=== PATIENT | female | born 1965 | race Caucasian/White ===

== ENCOUNTER 2024-08-11 12:16 | Inpatient (IN) | payer OTHER, SELFPAY ==
[2024-08-11] VITALS (11 sets, daily range): BP systolic 145–199; BP diastolic 88–113; BMI 29.3
--- NOTE | 2024-08-11 08:55 | ED.GENMED ---
History of Present Illness
General
Chief Complaint: Dizziness
Source: patient
Exam Limitations: none
Time Seen by Provider: 08/11/24 08:44
History of Present Illness
History of Present Illness:
59-year-old female presents with onset of lightheadedness this morning. She got up for work and started feeling lightheaded. This was preceded by 2 nights ago having copious amounts of dark coffee-ground appearing emesis. There is no further
vomiting yesterday. She denies any obvious black stools. She has approximately 3 alcoholic drinks a day and uses Aleve almost every day. She does not use caffeine on a regular basis. She currently denies abdominal pain vomiting nausea diarrhea
chest pain or shortness of breath. She has a history of hypertension otherwise. No other complaints at this time
Past History
Past History
ED Past Medical History: GERD and Hypercholesterolemia
ED Past Surgical History: None
Social History
Living: with family
Employment: Employed
Phy Exam
Physical Exam
Physical Exam:
General: Well-appearing female no acute respiratory distress
HEENT: Normocephalic atraumatic heart: Regular rate and rhythm
Lungs: Clear no wheeze
Abdomen is soft nontender nondistended
Extremities: No cyanosis or edema
Skin: Warm no rash
Course
Orders/Labs/Results
Orders:
Orders
08/11/24 08:30
EKG [Electrocardiogram (*1)] Urgent
Reason for Study: Vertigo / Dizzy
EKG- Treatment ONCE
08/11/24 08:55
Cardiac Monitoring- Treatment ONCE
Pantoprazole [Protonix IV] 80 mg IV NOW STA
08/11/24 09:07
Complete Blood Count/With Diff Urgent
Comprehensive Metabolic Panel Urgent
Lipase Urgent
08/11/24 09:30
0.9% Sodium Chloride 1000 ml [Nss] 1,000 ml IV BOLUS
Abnormal Lab Results
08/11/24
09:07
MCHC 32.6 L g/dL
(33.0-37.0)
BUN 20 H mg/dl
(7-17)
Glucose 158 H mg/dl
(70-99)
ALT 36 H U/L
(0-35)
08/11/24 09:07
08/11/24 09:07
Vital Signs
Initial and Last Documented VS:
Initial Vital Signs
Temp Pulse Resp BP Pulse Ox
98.4 F 76 16 174/108 99
08/11/24 08:25 08/11/24 08:25 08/11/24 08:25 08/11/24 08:25 08/11/24 08:25
Last Documented Vital Signs
Temp Pulse Resp BP Pulse Ox
98.4 F 66 13 174/108 96
08/11/24 08:25 08/11/24 10:00 08/11/24 10:00 08/11/24 08:25 08/11/24 10:00
MDM/Problems Addressed
Differential Diagnosis Includes:
Patient is lightheaded but also had dark coffee-ground looking like emesis 2 nights ago. EKG shows sinus rhythm without arrhythmia will hookup to manager cardiac to evaluate for arrhythmias. Also check for anemia and electrolyte imbalance. No
further vomiting or abdominal pain. Considered imaging however not indicated at this time.
*Critical Care Note
Total Time (30-74mins, 75-104mins- exclusive of procedures): Not Applicable
Update Note
Update Note:
With female plasterer rough in the room. Rectal exam was performed which demonstrated black-colored heme positive stool. Protonix ordered. Given patient's fatigue and lightheadedness associated with likely upper GI bleeding, discussed with emergency
room attending and will admit to hospital for further evaluation
ED Attending Note
-
Portions of this chart may have been created with voice recognition software.� Occasional wrong word or��sound alike� substitutions may have occurred due to the inherent limitations of voice recognition software.
Discharge Plan
Departure
Patient Disposition: Admit
Date of Disposition: 08/11/24
Time of Disposition: 10:36
Presentation/result/management discussed w/ accepting MD/DO: Hospitalist
Discharge Problem:
Acute GI bleeding
Prescriptions:
No Action
venlafaxine [Effexor XR] 150 mg Capsule,Extended Release 24hr
150 mg PO DAILY
acetaminophen [Tylenol] 325 mg Tablet
650 mg PO Q4HPRN PRN (Reason: mild pain)
esomeprazole magnesium [Nexium] 40 mg Capsule,Delayed Release(Dr/Ec)
40 mg PO HS
olmesartan [Benicar] 40 mg Tablet
40 mg PO DAILY
rosuvastatin [Crestor] 10 mg Tablet
10 mg PO QPM
Super Greens Gummies
2 gummy PO DAILY
Referrals:
Aleida Fenton PA-C [Family Provider] -
Interventions
Interventions:
*Risk Screen - Suicide Last Done: 08/11/24 08:25
*General Assessment Last Done: 08/11/24 08:25
*Neglect/Abuse Screening Last Done: 08/11/24 08:25
ED- Fall Risk Assessment Last Done: 08/11/24 09:08
ED- Neurological Assessment Last Done: 08/11/24 09:08
ED- Cardiac Assessment Last Done: 08/11/24 09:08
Discharge Date and Time
Print Language: GUATEMALAN
[2024-08-11 09:24] LABS: % Basophils 0.4 % (0-2); % Eosinophils 1.2 % (0-6); % Immature Granulocytes 0.3 % (0-0.5); % Lymphocytes 26.8 % (20.5-51.1); % Monocytes 8.7 % (1.7-9.3); % Neutrophils 62.6 % (42.2-75.2); Absolute Eosinophils 0.1 10^3/uL (0-0.7); Absolute Lymphocytes 1.8 10^3/uL (1.2-3.4); Absolute Monocytes 0.6 10^3/uL (0.1-0.6); Absolute Neutrophils 4.2 10^3/uL (1.4-6.5); Hematocrit 39.6 % (37.0-47.0); Hemoglobin 12.9 g/dL (12.0-16.0); Mean Corp Hgb Conc. 32.6 g/dL (33.0-37.0); Mean Corpuscular Volume 86.1 fL (81.0-99.0); Mean Platelet Volume 8.7 fL (7.4-10.4); Nucleated Red Blood Cells % 0 %; Platelet Count 196 10^3/uL (130-400); White Blood Cell Count 6.8 10^3/uL (4.8-10.8)
[2024-08-11 09:38] LABS: ALT (SGPT) 36 U/L (0-35); AST (SGOT) 35 U/L (14-36); Albumin 4.7 g/dl (3.5-5.0); Alkaline Phosphatase 60 U/L (38-126); Blood Urea Nitrogen 20 mg/dl (7-17); Calcium 9.6 mg/dl (8.4-10.2); Carbon Dioxide 29 mmol/L (22-30); Chloride 99 mmol/L (98-107); Glucose 158 mg/dl (70-99); Lipase 99 U/L (23-300); Potassium 3.9 mmol/L (3.5-5.1); Sodium 139 mmol/L (135-145); Total Bilirubin 0.7 mg/dl (0.2-1.3); Total Protein 7.9 g/dl (6.3-8.2); eGFR > 60.00
[2024-08-11] MEDS: PROTONIX IV 80 MG IV (09:49)
[2024-08-11] MEDS: NSS 1000 IV ×2 (09:50→15:40)
--- NOTE | 2024-08-11 11:43 | HPS.HSE ---
Family Physician
-
Family Physician: Aleida Fenton PA-C
Chief Complaint
-
Lightheadedness
History of Present Illness
Patient is a 59 years old female with history of hypertension who developed acute onset of nausea vomiting with reported coffee-ground content about 24 hours prior to presentation. Patient denied any abdominal pain, diarrhea, fever. Episode was
self-limited and patient had no symptoms for about 12 to 18 hours prior to presentation. In the morning of the day of admission patient reported sudden onset of lightheadedness. She denied syncope, chest pain. Because of the persistent symptoms
she presented to the emergency room for evaluation.
Patient admits to alcohol consumption daily about 3 bourbon drinks a day. She denies any alcohol-related problems or alcohol withdrawal in the past.
In the emergency room patient is hemodynamically stable, actually hypertensive. Further evaluation revealed hemoglobin of 12.8 and normal BUN. Physical examination with heme positive stool.
Medical History
Past Medical History
Past Medical History: Reports HTN
Past Surgical History: Reports None
Social History
Tobacco: Non-smoker
Alcohol: Daily
Drug: None
Personal:
Living: With Family
Employment: Employed
Family History
Family History: Not pertinent
Allergies / Home Medications
Allergies reflects when Allergies were last updated in [facility].
Home Medications with original date entered in [facility]
Allergy/Medication List:
Allergies
Allergy/AdvReac Type Severity Reaction Status Date / Time
No Known Allergies Allergy Verified 08/11/24 08:25
Home Medications
Super Greens Gummies 2 gummy PO DAILY Supplement 08/11/24
acetaminophen 325 mg tablet (Tylenol) 650 mg PO Q4HPRN PRN mild pain 08/11/24
esomeprazole magnesium 40 mg capsule,delayed release (Nexium) 40 mg PO HS Gastrointestinal Issue 08/11/24
olmesartan 40 mg tablet (Benicar) 40 mg PO DAILY Blood Pressure 08/11/24
rosuvastatin 10 mg tablet (Crestor) 10 mg PO QPM High Cholesterol 08/11/24
venlafaxine 150 mg capsule,extended release 24 hr (Effexor XR) 150 mg PO DAILY depression/anxiety 08/11/24
Review of Systems
-
A 12 point ROS was completed and negative except as noted: Yes
Cardiac: Reports No Symptoms
Abdomen/GI: Reports See HPI
Physical Exam
Vital Signs
Vital Signs
Temp Pulse Resp BP Pulse Ox
98.4 F 73 21 161/96 97
08/11/24 08:25 08/11/24 10:09 08/11/24 10:09 08/11/24 10:09 08/11/24 10:09
Physical Exam
General: Well Developed, Well Nourished and No Apparent Distress
HEENT: NormoCephalic, Moist mucous membranes and Atraumatic
Respiratory: Clear
Cardiac: S1/S2 and Regular Rhythm; No Murmur or Rub
GI: Soft, Non Tender, Non Distended and Normal Bowel Sounds; No Organomegaly
Rectal: Deferred by Provider
Musculoskeletal: No Clubbing, No Cyanosis and No Edema
Skin: No Rash
Neuro: Nonfocal/grossly intact
Laboratory Results
-
08/11/24 09:07
08/11/24 09:07
Laboratory Results
Total Bilirubin 0.7 mg/dl (0.2-1.3) 08/11/24 09:07
AST 35 U/L (14-36) 08/11/24 09:07
ALT 36 U/L (0-35) H 08/11/24 09:07
Alkaline Phosphatase 60 U/L (38-126) 08/11/24 09:07
Lipase 99 U/L (23-300) 08/11/24 09:07
Impression/Plan
-
IMPRESSION:
Presentation with self-limited episode of coffee-ground emesis
Lightheadedness
Accelerated hypertension
Daily alcohol consumption
PLAN:
Coffee-ground emesis
Differential gastritis,/PUD/Yesenia-Petty tear.
Hemodynamically stable
Hemoglobin 12.8 baseline normal BUN
Continue IV PPI.
Clear liquid diet
GI evaluation with likely EGD
Follow hemoglobin
Lightheadedness pain
No neurologic findings on exam
Hemodynamically stable
Noted accelerated hypertension
ECG normal sinus rhythm
Monitor on telemetry
Daily alcohol consumption
According to interview low risk for alcohol withdrawal
Will continue alcohol withdrawal protocol/ MSAS
Thiamine
Essential hypertension
Continue on losartan monitoring BP trend closely.
--- NOTE | 2024-08-11 15:45 | CON.GI ---
Addendum entered and electronically signed by Doug Bean DO 08/11/24 19:46:
I saw and examined the patient.
The ONCOLOGY REP SPECIALIST's note was reviewed and I agree with the note.
Comment: This is a 59 y.o female with past medical history of HTN with acute nausea/vomiting and self-limited episode of coffee ground emesis. Heme (+) stool but without any melena or maroon bowel movements. Does note significant EtOH use but no
history of cirrhosis or signs of synthetic dysfunction. Would benefit from an EGD given her previous dark stools prior to admission and concern for coffee ground emesis secondary to non-variceal UGIB.
Recommendations:
- Okay for CLD, keep NPO at MN
- IV PPI 40 mg BiD
- Plan for EGD tomorrow, 08/12/2024, for further evaluation
- NSAID avoidance and EtOH cessation
- See rest of care as outline below
Discussed with primary internal medicine team. GI will continue to follow.
Original Note:
Consultation
-
Date/Time Consultation Requested: 08/11/24 1523
Date/Time Consultation Performed: 08/11/24 1530
Requesting Provider: Dr. Jules
Performing Provider: Dr. Bean/JASON Galindo
Reason for Consultation: hematemesis
Medical History
Chief Complaint / HPI
Chief Complaint: lightheadedness
History of Present Illness:
59-year-old female with past medical history of hypertension, alcohol use disorder GERD, osteoarthritis presents to the emergency room with lightheadedness after having large episode of coffee-ground emesis Sunday night. Asked to evaluate for the
same. The patient has 25-year history of GERD using Nexium daily. She also has a history of osteoarthritis using ibuprofen 200 mg every other day for multiple years. The patient also drinks 1.5 L of bourbon a week. Her drinks are usually 3
drinks daily. She states that Sunday evening she felt as if she was going to vomit. She got up and immediately vomited a very large amount of hematemesis. The following day she had dark stools. She went to try to drive to work and she felt
'out of it'. She felt spacey and because of the sensation she had her take her to the emergency room. She was found to have OB positive stool. She denies any fevers, chills, hematochezia, dysphagia or dyne aphasia. No early satiety or
unintentional weight loss. She does not smoke. She has never had an upper endoscopy before. Her last colonoscopy was in 2020 at [facility]. She states that she was told this was normal and did not need another one until the age of
64. She denies any family history of gastrointestinal malignancy or IBD.
Past Medical History
Past Medical History: GERD, HTN and Other (Depression, osteoarthritis)
Social History
Tobacco: Non-Smoker
Alcohol: Daily (3 drinks daily (1.5 L of bourbon a week))
Drug: None
Personal:
Living: With Family
Employment: Employed
Family History
Family History: Other (No family history of gastrointestinal malignancy or IBD)
Allergies / Home Medications
Allergy/AdvReac Type Severity Reaction Status Date / Time
No Known Allergies Allergy Verified 08/11/24 08:25
�Medication �Instructions �Recorded
Super Greens Gummies 2 gummy PO DAILY Supplement 08/11/24
acetaminophen 325 mg tablet 650 mg PO Q4HPRN PRN mild pain 08/11/24
(Tylenol)
esomeprazole magnesium 40 mg 40 mg PO HS Gastrointestinal Issue 08/11/24
capsule,delayed release (Nexium)
olmesartan 40 mg tablet (Benicar) 40 mg PO DAILY Blood Pressure 08/11/24
rosuvastatin 10 mg tablet (Crestor) 10 mg PO QPM High Cholesterol 08/11/24
venlafaxine 150 mg 150 mg PO DAILY depression/anxiety 08/11/24
capsule,extended release 24 hr
(Effexor XR)
Review of Systems
-
All other systems: A 12 pt ROS was Negative except as stated above in HPI
Vital Signs
Temp Pulse Resp BP Pulse Ox
98.4 F 73 18 164/92 97
08/11/24 08:25 08/11/24 15:00 08/11/24 15:06 08/11/24 15:00 08/11/24 14:30
Physical Exam
Exam
General: No Apparent Distress
HEENT: Anicteric
Respiratory: Clear
Cardiac: Regular Rhythm
GI: Soft, Non Tender, Non Distended and Normal Bowel Sounds
Musculoskeletal: No Edema
Skin: Warm and Dry
Neuro: AO x 3
Psych: Calm and Other (No asterixis)
Results
WBC 6.8 10^3/uL (4.8-10.8) 08/11/24 09:07
Hgb 12.9 g/dL (12.0-16.0) 08/11/24 09:07
Hct 39.6 % (37.0-47.0) 08/11/24 09:07
MCV 86.1 fL (81.0-99.0) 08/11/24 09:07
Plt Count 196 10^3/uL (130-400) 08/11/24 09:07
Absolute Neuts (auto) 4.2 10^3/uL (1.4-6.5) 08/11/24 09:07
Sodium 139 mmol/L (135-145) 08/11/24 09:07
Potassium 3.9 mmol/L (3.5-5.1) 08/11/24 09:07
Chloride 99 mmol/L (98-107) 08/11/24 09:07
Carbon Dioxide 29 mmol/L (22-30) 08/11/24 09:07
BUN 20 mg/dl (7-17) H 08/11/24 09:07
Creatinine 0.9 mg/dL (0.6-1.0) 08/11/24 09:07
Calcium 9.6 mg/dl (8.4-10.2) 08/11/24 09:07
Total Bilirubin 0.7 mg/dl (0.2-1.3) 08/11/24 09:07
AST 35 U/L (14-36) 08/11/24 09:07
ALT 36 U/L (0-35) H 08/11/24 09:07
Alkaline Phosphatase 60 U/L (38-126) 08/11/24 09:07
Lipase 99 U/L (23-300) 08/11/24 09:07
Diagnostic Image Results:
None
Prior GI Procedures:
EGD: Never
Colonoscopy: 2020 ([facility]) per patient's she states was negative. States she does not need another until the age of 64. Records unavailable to us
Assessment / Plan
-
59-year-old female with past medical history of hypertension, alcohol use disorder GERD, osteoarthritis presents to the emergency room with lightheadedness after having large episode of coffee-ground emesis Sunday night. Asked to evaluate for the
same. Patient presents with OB positive stool. Lightheadedness this morning. Significant alcohol use drinking up to 1.5 L of bourbon a week. Ibuprofen use 200 mg every other day. Significant GERD history using Nexium daily for 25 years. Vital
signs stable. WBC 6.8, hemoglobin 12.9, hematocrit 3 9.6, platelets 196, sodium 139, potassium 3.9, BUN 20, creatinine 0.9, glucose 158, total bilirubin 0.7, AST 35, ALT 36, alk phos 60, alcohol nondetected.
Impression:
OB positive stool
Hematemesis
Lightheadedness
Alcohol use (1.5 L weekly)
Plan:
-Continue pantoprazole
-EGD planned for tomorrow
-Trend hemoglobin
-No stigmata of cirrhosis, will hold on octreotide.
-Advised on alcohol cessation
-Alcohol withdrawal prophylaxis
-Avoid NSAIDs
-Further recommendations to be forthcoming
-
-
Thank you for consultation and allowing me to participate in the patient's care. Please call the regional planner GI physician during the after hours with any questions or concerns.
[2024-08-11 15:53] LABS: Alcohol None Detected
[2024-08-11 15:58] LABS: B-Hydroxybutyrate 0.44 mmol/L (0.02-0.27)
[2024-08-11] MEDS: FOLVITE 1 MG PO (17:56)
[2024-08-11] MEDS: CRESTOR 10 MG PO (17:56)
[2024-08-11] MEDS: THIAMINE INJECTION 200 MG IV (19:14)
[2024-08-11] MEDS: PROTONIX IV 40 MG IV (19:14)
[2024-08-11] MEDS: NSS (PRESERVATIVE FREE) 10 ML IV (19:14)
[2024-08-11] MEDS: BENICAR 40 MG PO (19:18)
[2024-08-12] VITALS (7 sets, daily range): BP systolic 12–180; BP diastolic 70–106
[2024-08-12] MEDS: NSS 1000 IV ×2 (01:08→10:28)
[2024-08-12 01:35] LABS: Hemoglobin 11.5 g/dL (12.0-16.0)
[2024-08-12] MEDS: FOLVITE 1 MG PO (08:18)
[2024-08-12] MEDS: EFFEXOR XR 150 MG PO (08:18)
[2024-08-12] MEDS: BENICAR 40 MG PO (08:18)
[2024-08-12] MEDS: NSS (PRESERVATIVE FREE) 10 ML IV (08:19)
[2024-08-12] MEDS: PROTONIX IV 40 MG IV (08:19)
[2024-08-12] MEDS: THIAMINE INJECTION 200 MG IV (08:19)
[2024-08-12 08:25] LABS: % Basophils 0.6 % (0-2); % Eosinophils 1.8 % (0-6); % Immature Granulocytes 0.4 % (0-0.5); % Lymphocytes 28.7 % (20.5-51.1); % Monocytes 8.9 % (1.7-9.3); % Neutrophils 59.6 % (42.2-75.2); Absolute Eosinophils 0.1 10^3/uL (0-0.7); Absolute Lymphocytes 1.9 10^3/uL (1.2-3.4); Absolute Monocytes 0.6 10^3/uL (0.1-0.6); Hematocrit 35.2 % (37.0-47.0); Hemoglobin 11.7 g/dL (12.0-16.0); Mean Corp Hgb Conc. 33.2 g/dL (33.0-37.0); Mean Corpuscular Hgb 28.1 pg (27.0-31.0); Mean Corpuscular Volume 84.4 fL (81.0-99.0); Nucleated Red Blood Cells % 0 %; Platelet Count 190 10^3/uL (130-400); Red Blood Cell Count 4.17 10^6/uL (4.20-5.40); Red Cell Dist. Width 13.8 % (11.5-14.5); White Blood Cell Count 6.7 10^3/uL (4.8-10.8)
[2024-08-12 08:49] LABS: Blood Urea Nitrogen 13 mg/dl (7-17); Carbon Dioxide 21 mmol/L (22-30); Chloride 107 mmol/L (98-107); Estimated Creatinine Clearance 69 ml/min; Glucose 94 mg/dl (70-99); Potassium 4.1 mmol/L (3.5-5.1); Sodium 139 mmol/L (135-145); eGFR > 60.00
--- NOTE | 2024-08-12 10:47 | CM ---
Patient seen bedside.
IA completed.
patient livs with spouse in a 1 story home.
Independent without assistive devices prior to admission.
patient drives and works.
patient for EGD today.
Patient denies home care needs at this time.
Patient denies ETOH concerns and declined resources.
PCP: Dr Fenton
Pharmacy: [facility]
Plan: home no needs
--- NOTE | 2024-08-12 14:01 | W.DS.TRANS ---
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
-
Discharge Instructions:
Discharge Diagnosis/Procedures Gastritis/erosive esophagitis
Diet Regular
Instructions:
Stand-Alone Forms: Return to Work
Changes to Home Medications: No
Discharge Medications:
DC Medications w/original date entered in [employer]
Super Greens Gummies 2 gummy PO DAILY Supplement 08/11/24
acetaminophen 325 mg tablet (Tylenol) 650 mg PO Q4HPRN PRN mild pain 08/11/24
olmesartan 40 mg tablet (Benicar) 40 mg PO DAILY Blood Pressure 08/11/24
rosuvastatin 10 mg tablet (Crestor) 10 mg PO QPM High Cholesterol 08/11/24
venlafaxine 150 mg capsule,extended release 24 hr (Effexor XR) 150 mg PO DAILY depression/anxiety 08/11/24
esomeprazole magnesium 40 mg capsule,delayed release (Nexium) 40 mg PO BID Gastrointestinal Issue #60 caps 08/12/24
Home Medication Changes
Pending Results: No
== END 2024-08-12 14:15 | disposition home or self-care (01) | DRG 381 ==
LOC: 1 ACUTE 12:16
PROVIDERS: Physician Assistant; ADMITTING PHYSICIAN Internal Medicine; CONSULT PHYSICIAN Student in an Organized Health Care Education/Training Program; EMERGENCY PHYSICIAN Emergency Medicine; FAMILY PHYSICIAN Family Medicine
PROC: 0DB68ZX Excision of Stomach, Via Natural or Artificial Opening Endoscopic, Diagnostic (ICD-10-PCS; 2024-08-11)
DX: K22.11 Ulcer of esophagus with bleeding (principal); D62 Acute posthemorrhagic anemia; K22.2 Esophageal obstruction; K44.9 Diaphragmatic hernia without obstruction or gangrene; K31.89 Other diseases of stomach and duodenum; I10 Essential (primary) hypertension; R42 Dizziness and giddiness; K31.7 Polyp of stomach and duodenum
CPT/HCPCS: 88305; 80048; 80053; 82010; 82077; 83690; 85018; 85025; 88342; 93005; 96361; 96374; 99285